=== PATIENT | male | born 1960 | race Caucasian/White ===

== ENCOUNTER 2023-02-25 13:00 | Outpatient (RCR) | payer MEDICARE, SELFPAY ==
[2023-01-28 13:01] VITALS: BP 120/75; PULSE 78; O2SAT 97
== END 2023-04-03 14:18 | disposition home or self-care (01) ==
LOC: HO.PTCHIC 13:00
PROVIDERS: PCP Physician Assistant; Visit Provider Surgery Vascular Surgery
DX: R26.89 Other abnormalities of gait and mobility (principal)
CPT/HCPCS: 97110; 97112; 97116; 97163; 97530

== ENCOUNTER → 2025-07-05 13:19 | Outpatient (BNV) | payer MEDICARE, SELFPAY | PROVIDERS: Emergency Provider Emergency Medicine; PCP Physician Assistant; Visit Provider Radiology Diagnostic Radiology | DX: J98.4 Other disorders of lung (principal) | CPT/HCPCS: 71045 ==

== ENCOUNTER → 2025-07-05 13:19 | Outpatient (BNV) | payer MEDICARE, SELFPAY | PROVIDERS: Emergency Provider Emergency Medicine; PCP Physician Assistant; Visit Provider Internal Medicine | DX: R00.1 Bradycardia, unspecified (principal); I45.2 Bifascicular block | CPT/HCPCS: 93010 ==

== ENCOUNTER → 2025-07-05 14:04 | Outpatient (BNV) | payer MEDICARE, SELFPAY | PROVIDERS: Emergency Provider Emergency Medicine; PCP Physician Assistant; Visit Provider Hospitalist | DX: N17.9 Acute kidney failure, unspecified (principal); N39.0 Urinary tract infection, site not specified | CPT/HCPCS: 99233 ==

== ENCOUNTER → 2025-07-05 18:40 | Outpatient (BNV) | payer MEDICARE, SELFPAY | PROVIDERS: Admitting Provider Hospitalist; Emergency Provider Emergency Medicine; PCP Physician Assistant; Visit Provider Internal Medicine | DX: E11.69 Type 2 diabetes mellitus with other specified complication (principal) | CPT/HCPCS: 99232 ==

== ENCOUNTER → 2025-07-05 18:40 | Outpatient (BNV) | payer MEDICARE, SELFPAY | PROVIDERS: Admitting Provider Hospitalist; Emergency Provider Emergency Medicine; PCP Physician Assistant; Visit Provider Urology | DX: R33.9 Retention of urine, unspecified (principal); N39.0 Urinary tract infection, site not specified | CPT/HCPCS: 51705; 99222 ==